=== PATIENT | female | born 1990 | race Caucasian/White ===

== ENCOUNTER → 2025-04-21 | Emergency (ER) | payer MEDICARE, MEDICAID ==
[~2025-04-21] VITALS: Ht 167.6 cm; Wt 59.1 kg
[~2025-04-21] MED LIST: FLUO-12 PO; FLUO-167 PO; HALO5TAB PO; LAMO300T2 PO; LAMOTRIGINE 300 MG PO SCH; LEVO50TA PO; LITH300C PO; MIDO5TAB4 PO; PALI234D IM; PRAZ1CAP5 PO; TRAZ-251 PO; levoTHYROXINE 25mcg tablet PO SCH; paliperidone palmitate inj 234 MG/1.5 ML SYRINGE IM SCH
[2025-04-21 14:27] LABS: LEUKOCYTE ESTERASE ,URINE SMALL (Neg); NITRITES, URINE NEGATIVE (Neg); OCCULT BLOOD,URINE NEGATIVE (Neg)
[2025-04-21 14:28] LABS: UA COLLECTION TYPE CLN CATCH MIDSTREAM
[2025-04-21 14:29] LABS: MEAN PLATELET VOLUME 7.3 FL (7.4-10.4); RED CELL DISTRIBUTION WIDTH 12.8 % (11.5-14.5)
[2025-04-21 14:29] LABS: URINE HCG NEGATIVE (NEG)
[2025-04-21 14:37] LABS: SQUAMOUS EPITHELIAL CELL,UR FEW /LPF (FEW); WBC CLUMPS,URINE FEW /HPF (NEGATIVE)
[2025-04-21 14:39] LABS: URINE AMPHETAMINE SCREEN NEGATIVE (Neg); URINE BARBITUATE SCREEN NEGATIVE (Neg); URINE BENZODIAZEPINES SCREEN NEGATIVE (Neg); URINE CANNABINOID SCREEN NEGATIVE (Neg); URINE COCAINE SCREEN NEGATIVE (Neg); URINE METHADONE SCREEN NEGATIVE (Neg); URINE OPIATE SCREEN NEGATIVE (Neg); URINE PHENCYCLIDINE SCREEN NEGATIVE (Neg)
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
[2025-04-21 14:50] LABS: CREATININE 0.70 MG/DL (0.40-0.90); ETHANOL < 10 MG/DL (<10); TOTAL CARBON DIOXIDE 33.4 MMOL/L (24-32); eCRCL 108 ML/MIN; eGFR > 90 ML/MIN
[2025-04-21 19:20] VITALS: BP 130/86; PULSE 87; RESP 16; TEMP 98; O2SAT 99
== END ==
LOC: ER 14:07
DX: F25.9 Schizoaffective disorder, unspecified (principal); R45.851 Suicidal ideations; Z20.822 Contact with and (suspected) exposure to COVID-19; Z88.8 Allergy status to other drugs, medicaments and biological substances; Z79.899 Other long term (current) drug therapy
CPT/HCPCS: 36415; 80048; 80178; 80305; 81001; 81025; 84443; 85025; 87088; 87811; 99285; G0480; 80320